=== PATIENT | female | born 1980 | race Caucasian/White ===

== ENCOUNTER 2016-11-28 12:42 | Emergency (ER) | payer OTHER ==
[2016-11-28 13:05] VITALS: BP 120/62; PULSE 94
[2016-11-28 13:15] VITALS: RESP 16; TEMP 98.2
[2016-11-28 13:48] LABS: BACTERIA, URINE MOD /hpf; BLOOD, URINE NEG (NEG); GLUCOSE,URINE NEG (NEG); KETONE, URINE 10 mg/dL (NEG); NITRITE,URINE NEG (NEG); PH, URINE 6.5 (5.0-8.5); SQUAMOUS EPITHELIAL CELL URINE 1 /hpf (0-5); URINE COLOR LIGHT-YELLOW (YELLW/STRAW)
[2016-11-28 13:50] LABS: COMMENT (UR) CULTURE INDICATED; CULTURE IF INDICATED CULTURE INDICATED
[2016-11-28 14:24] VITALS: BP 99/66; PULSE 80
[2016-11-28 14:29] VITALS: RESP 18
--- NOTE | 2016-11-28 14:29 | PD ---
HPI Chief Complaint pelvic pressure Date Seen: Nov 28, 2016 Time Seen: 13:00 Travel History International Travel<30 Days: No Contact w/Intl Traveler<30Days: No Known Affected Area: No History of Present Illness HPI 36 Yo at [id number] c/o pelvic pressure since last evening. Occasional contractions but mostly pressure complaints Para: 1 : 2 History Past Medical History Medical History: Denies Significant Hx Past Surgical History Surgical History: No Previous Surgery Family History Family History: Negative Social History Alcohol Use: No Tobacco Use: No Substance Abuse: No Allergies-Medications (Allergen,Severity, Reaction): Coded Allergies: No Known Allergies (Unverified , 11/28/16) Review of Systems Except as stated in HPI: all other systems reviewed are Neg Physical Exam Narrative GENERAL: Well-nourished, well-developed patient. SKIN: Warm and dry. HEAD: Normocephalic and atraumatic. EYES: No scleral icterus. No injection or drainage. ENT: No nasal drainage noted. Mucous membranes pink. Airway patent. NECK: Supple, trachea midline. No JVD. CARDIOVASCULAR: Regular rate and rhythm without murmurs, gallops, or rubs. RESPIRATORY: Breath sounds equal bilaterally. No accessory muscle use. BREASTS: Bilateral exam showed no masses , no retractions, no nipple discharge. ABDOMEN/GI: Abdomen soft, non-tender, bowel sounds present, no rebound, no guarding Gravid to [-] weeks size Fundal Height: [-]32 GENITOURINARY: External Genitalia: intact and normal in appearance BUS glands: [-]nl Cervix: [-]posterior Dilatation: [-] cl Effacement: [-] 0 Station: [-] high Presentation: [-] vtx Membranes: [intact or ruptured]int Uterine Contractions: [-] irregular q5-12min Significant stool in rectum FHT's: Category: [-] 1 Baseline: [-] 140 Reactive: [-] mod Variability: [-] mod, accels present Decels: [-] absent EXTREMITIES: No cyanosis or edema. BACK: Nontender without obvious deformity. No CVA tenderness. NEUROLOGICAL: Awake and alert. Motor and sensory grossly within normal limits. Five out of 5 muscle strength in all muscle groups. Normal speech. Data Data Vital Signs Reviewed: Yes Orders Vital Signs (Adult) .ON ADMISSION (11/28/16 13:31) ^ Labor Status (11/28/16 13:31) Urinalysis - C+S If Indicated (11/28/16 13:31) ^ Hydration (11/28/16 13:31) Fibronectin (11/28/16 13:31) Urine Culture (11/28/16 12:50) Labs Laboratory Tests Test 11/28/16 11/28/16 12:50 13:30 Urine Color LIGHT-YELLOW Urine Turbidity CLEAR Urine pH 6.5 Urine Specific Ewing 1.004 Urine Protein NEG mg/dL Urine Glucose (UA) NEG mg/dL Urine Ketones 10 mg/dL Urine Occult Blood NEG Urine Nitrite NEG Urine Bilirubin NEG Urine Urobilinogen LESS THAN 2.0 MG/DL Urine Leukocyte Esterase SMALL Urine RBC LESS THAN 1 /hpf Urine WBC 1 /hpf Urine Squamous Epithelial 1 /hpf Cells Urine Bacteria MOD /hpf Microscopic Urinalysis Comment CULTURE INDICATED Fibronectin NEGATIVE Laboratory Tests Test 11/28/16 11/28/16 12:50 13:30 Urine Color LIGHT-YELLOW Urine Turbidity CLEAR Urine pH 6.5 Urine Specific Ewing 1.004 Urine Protein NEG Urine Glucose (UA) NEG Urine Ketones 10 Urine Occult Blood NEG Urine Nitrite NEG Urine Bilirubin NEG Urine Urobilinogen LESS THAN 2.0 Urine Leukocyte Esterase SMALL Urine RBC LESS THAN 1 Urine WBC 1 Urine Squamous Epithelial 1 Cells Urine Bacteria MOD Microscopic Urinalysis Comment CULTURE INDICATED Fibronectin NEGATIVE Date/Time Procedure Status Source Growth 11/28/16 12:50 Urine Culture Received Urine Clean Catch Pending MDM Plan False labor at 33 weeks FFN negative Consider stool softener PTL warnings Diagnosis Diagnosis: Primary Impression: False labor before 37 completed weeks of gestation during in third trimester, antepartum Additional Impression: 33 weeks gestation of Disposition: 01 DISCHARGE HOME Kylie Melgar MD Nov 28, 2016 14:29
== END 2016-11-28 14:37 | disposition home or self-care (01) ==
LOC: HOBED 12:42
DX: O47.1 False labor at or after 37 completed weeks of gestation (principal); Z3A.37 37 weeks gestation of pregnancy
CPT/HCPCS: 59025; 81001; 82731; 87086

== ENCOUNTER 2016-12-10 19:10 | Emergency (ER) | payer OTHER ==
[2016-12-10 19:25] VITALS: BP 115/67; PULSE 86; RESP 16; TEMP 97.9
--- NOTE | 2016-12-10 19:41 | PD ---
HPI Travel History International Travel<30 Days: No Contact w/Intl Traveler<30Days: No Known Affected Area: No History of Present Illness HPI This patient is a 36-year-old 2 para 1 EDC is January 13, 2017 presently at 35 weeks and 1 day she presents the chief complaint of a headache unresponsive to Tylenol and she has some flashes in her eyes no ruptured membranes no vaginal bleeding has occasional Skip Guido the baby is active care with Dr. Campa History Past Medical History Narrative Medical No known drug allergies no history of any major medical problems Obstetric History Obstetric History First February 10, 2001 female infant weight 6 lbs. 14 oz. vaginal delivery uncomplicated Past Surgical History Surgical History: No Previous Surgery Family History Family History: Negative Social History Alcohol Use: No Tobacco Use: No Substance Abuse: No Allergies-Medications (Allergen,Severity, Reaction): Coded Allergies: No Known Allergies (Unverified , 11/28/16) Review of Systems Eyes: Blurred Vision HENT: Headaches Physical Exam Vital Signs Date Time Temp Pulse Resp B/P Pulse Ox O2 Delivery O2 Flow Rate FiO2 12/10/16 19:25 97.9 16 12/10/16 19:25 86 115/67 Narrative GENERAL: Well-nourished, well-developed patient. Alert oriented 3 and cooperative in no acute distress SKIN: Warm and dry. HEAD: Normocephalic and atraumatic. EYES: No scleral icterus. No injection or drainage. Conjunctiva pink ENT: No nasal drainage noted. Mucous membranes pink. Airway patent. Mucous membranes are moist CARDIOVASCULAR: Regular rate and rhythm without murmurs, gallops, or rubs. RESPIRATORY: Breath sounds equal bilaterally. No accessory muscle use. ABDOMEN/GI: Gravid consistent with 35 weeks soft nontender baby active no palpable contractions Gravid to [-] weeks size 35 Fundal Height: [-] GENITOURINARY: External Genitalia: intact and normal in appearance BUS glands: [-] Cervix: [-] Posterior soft Dilatation: [-] Closed Effacement: [-] 0 Station: [-] Ballotable Presentation: [-] Vertex Membranes: [intact Uterine Contractions: [-] Occasional [place] Guido FHT's: Category: [-] 1 Baseline: [-] 1:30 Reactive: [-] + Variability: [-] Moderate Decels: [-] 0 EXTREMITIES: No cyanosis 2+ edema reflexes are 2+ and non-brisk NEUROLOGICAL: Awake and alert. Motor and sensory grossly within normal limits. Five out of 5 muscle strength in all muscle groups. Normal speech. Data Data Vital Signs Reviewed: Yes (blood pressure 115/67 pulse 86 respiration 16 temperature is 97.9) Orders Vital Signs (Adult) LEVY.Q4H (12/10/16 19:12) ^ Labor Status (12/10/16 19:12) Urinalysis - C+S If Indicated (12/10/16 19:12) ^ Hydration (12/10/16:12) Cbc No Diff, Includes Plts (12/10/16 19:12) Comprehensive Metabolic Panel (12/10/16:12) Uric Acid (12/10/16:12) MDM Medical Record Reviewed: Yes (previous visit reviewed) Interpretation(s) 36-year-old at 35 weeks and 1 day Not in labor headache and visual changes Rule out preeclampsia versus headache/migraines Narrative Course / MDM Labs within normal limits No protein Blood pressure stable Category 1 trace Plan External monitoring By mouth fluid hydration Blood pressure every 15 minutes on left tilt CBC CMP uric acid urinalysis Reevaluation Patient to follow-up with Dr. Campa with her next appointment or as indicated Diagnosis Diagnosis: Primary Impression: Headache Additional Impression: 35 weeks gestation of Disposition: 01 DISCHARGE HOME Condition: Stable Tamia Gaffney MD Dec 10, 2016 19:41
[2016-12-10] MEDS ORDERED: ACETAMINOPHEN/CODEINE 300 MG/30 MG TAB PO ONE (19:45)
[2016-12-10 20:04] LABS: HEMATOCRIT 30.6 % (35.0-46.0); MEAN CELL VOLUME 84.1 FL (80.0-100.0); MEAN CORPUSCULAR HEMOGLOBIN 29.8 PG (27.0-34.0); MEAN CORPUSCULAR HGB CONC 35.4 % (32.0-36.0); PLATELET COUNT 265 TH/MM3 (150-450); RED BLOOD COUNT 3.64 MIL/MM3 (4.00-5.30); RED CELL DISTRIBUTION WIDTH 13.4 % (11.6-17.2); REVIEW FLAG FINAL; WHITE BLOOD COUNT 14.7 TH/MM3 (4.0-11.0)
[2016-12-10 20:10] LABS: BACTERIA, URINE RARE /hpf; BLOOD, URINE NEG (NEG); COMMENT (UR) CULT NOT INDICATED; CULTURE IF INDICATED CULT NOT INDICATED; GLUCOSE,URINE NEG (NEG); KETONE, URINE NEG (NEG); MUCUS URINE FEW /lpf (OCC); NITRITE,URINE NEG (NEG); PH, URINE 6.5 (5.0-8.5); URINE COLOR COLORLESS (YELLW/STRAW)
[2016-12-10 20:20] LABS: ALT (GPT) 15 U/L (10-53); ANION GAP 10 MEQ/L (5-15); AST (GOT) 10 U/L (15-37); BICARBONATE 24.7 MEQ/L (21.0-32.0); BLOOD UREA NITROGEN 5 MG/DL (7-18); CHLORIDE 102 MEQ/L (98-107); GLOMERULAR FILTRATION RATE 145 ML/MIN (>89); POTASSIUM 3.6 MEQ/L (3.5-5.1); SODIUM (NA) 137 MEQ/L (136-145); URIC ACID 2.5 MG/DL (2.6-6.0)
[2016-12-10 20:22] LABS: ALKALINE PHOSPHATASE 112 U/L (45-117); TOTAL BILIRUBIN ADULT 0.3 MG/DL (0.2-1.0)
[2016-12-10 20:25] VITALS: RESP 16
[2016-12-10 20:26] VITALS: BP 108/64; PULSE 68
== END 2016-12-10 21:03 | disposition home or self-care (01) ==
LOC: HOBED 19:10
DX: O26.893 Other specified pregnancy related conditions, third trimester (principal); R51 Headache; Z3A.35 35 weeks gestation of pregnancy
CPT/HCPCS: 36415; 59025; 80053; 81001; 84550; 85027

== ENCOUNTER 2016-12-11 22:18 | Emergency (ER) | payer OTHER ==
--- NOTE | 2016-12-11 23:01 | PD ---
HPI Chief Complaint Irregular contractions, decreased movement"abdomen getting very hard and staying hard" Date Seen: Dec 11, 2016 Travel History International Travel<30 Days: No Contact w/Intl Traveler<30Days: No Known Affected Area: No History of Present Illness HPI Patient is a 36-year-old white female 35 weeks presents complaining of her abdomen getting hard this evening staying hard. It was not really hurting is just her abdomen again very firm and was sustained that way and that worried her. She had noticed some mild decrease in movement prior to that but the baby then began move more when she started to do kick counts at home she then began noticing what she describes Skip Guido contractions. She denies bleeding or rupture the membranes Para: 1 : 2 History Obstetric History Obstetric History One vaginal delivery Social History Alcohol Use: No Tobacco Use: No Substance Abuse: No Allergies-Medications (Allergen,Severity, Reaction): Coded Allergies: No Known Allergies (Unverified , 11/28/16) Review of Systems General / Constitutional: No: Fever, Weight Gain, Chills, Other Eyes: No: Diploplia, Blurred Vision, Visual changes, Pain, Photophobia HENT: No: Headaches, Vertigo, Lightheadedness Cardiovascular: No: Irregular Rhythm, Chest Pain or Discomfort, Palpitations, Tachycardia, Syncope, Varicosities, Edema, Cyanosis Respiratory: No: Cough, Short of Breath, Other Gastrointestinal: No: Nausea, Vomiting, Diarrhea Genitourinary: No: Decreased Urinary Output, Oliguria Musculoskeletal: No: Limited ROM, Weakness, Cramping, Edema, Pain Skin: No Rash, No Itching, No Dryness, No Lumps, No Change in Pigmentation, No Change in Nails, No Alopecia, No Lesions Neurologic: No: Weakness, Dizziness, Syncope, Focal Abnormalities, Coordination Problem, Headache, Slurred Speech, Seizures Psychiatric: No: Depression, Suicidal Ideations, Homicidal Ideation Endocrine: No: Heat Intolerance, Cold Intolerance, Polydipsia, Polyuria, Other Physical Exam Narrative GENERAL: Well-nourished, well-developed patient. SKIN: Warm and dry. HEAD: Normocephalic and atraumatic. EYES: No scleral icterus. No injection or drainage. ENT: No nasal drainage noted. Mucous membranes pink. Airway patent. NECK: Supple, trachea midline. No JVD. CARDIOVASCULAR: Regular rate and rhythm without murmurs, gallops, or rubs. RESPIRATORY: Breath sounds equal bilaterally. No accessory muscle use. BREASTS: Bilateral exam showed no masses , no retractions, no nipple discharge. ABDOMEN/GI: Abdomen soft, non-tender, bowel sounds present, no rebound, no guarding Gravid to [36-] weeks size Fundal Height: [36-] GENITOURINARY: External Genitalia: intact and normal in appearance BUS glands: [-] Cervix: [-1] Dilatation: [1-] Effacement: [-30] Station: [-3] Presentation: [vtx-] Membranes: [intact ] Uterine Contractions: [irreg-] FHT's: Category: [1-] Baseline: [-133] Reactive: [-yes] Variability: [mod-] Decels: [none-] EXTREMITIES: No cyanosis or edema. BACK: Nontender without obvious deformity. No CVA tenderness. NEUROLOGICAL: Awake and alert. Motor and sensory grossly within normal limits. Five out of 5 muscle strength in all muscle groups. Normal speech. MDM Interpretation(s) This patient is 36-year-old white female at [address] Campa who presents complaining of her abdomen getting hard earlier in the day of with some prior to that decreased movement , she denies bleeding or rupture the membranes and the baby became more active once she started doing kick counts at home she then began having what she describes as Skip Guido contractions. Here on OB ED patient is having irregular contractions that she is barely feeling, her cervix is 1/ thick and high,, heart rate tracing is reactive Plan Plan for patient is to be discharged home to bedrest to drink plenty of fluids stay hydrated use Tylenol liberally uncomfortable and use a heating pad or hot bath to help relieve her symptoms. She is to watch with baby is doing kick count whys and to return if there is a problem otherwise she'll follow-up with her OB provider Diagnosis Diagnosis: Primary Impression: [place] Guido contractions Additional Impression: Decreased movement affecting management of in third trimester Disposition: 01 DISCHARGE HOME Condition: Stable Martin Neal II, MD Dec 11, 2016 23:01
== END 2016-12-11 23:22 | disposition home or self-care (01) ==
LOC: HOBED 22:18
DX: O47.03 False labor before 37 completed weeks of gestation, third trimester (principal); Z3A.35 35 weeks gestation of pregnancy
CPT/HCPCS: 99284

== ENCOUNTER → 2016-12-16 | Outpatient (CLI) | payer OTHER ==
[~2016-12-16] MED LIST: PREN29TA PO
== END ==
LOC: HPND 14:15
PROVIDERS: ATTEND Obstetrics & Gynecology
DX: O36.63X0 Maternal care for excessive fetal growth, third trimester, not applicable or unspecified (principal)
CPT/HCPCS: 76816

== ENCOUNTER 2017-01-13 06:09 | Inpatient (IN) | payer OTHER ==
[~2017-01-13] VITALS: Ht 165.1 cm; Wt 77.1 kg
[2017-01-13] VITALS (39 sets, daily range): BP systolic 93–126; BP diastolic 52–75; PULSE 65–120; RESP 16–20; TEMP 98–98.7; O2SAT 99–100
[2017-01-13] MEDS ORDERED: NS 1000 ML IV PRN (06:30)
[2017-01-13] MEDS ORDERED: NS 500 ML BOLUS IV PRN (06:30)
[2017-01-13] MEDS ORDERED: LIDOCAINE HCL 1% 50 ML VIAL I-DERMAL PRN (06:30)
[2017-01-13] MEDS ORDERED: CITRIC ACID-SODIUM CITRATE LIQ 30 ML UDC PO SCH (06:30)
[2017-01-13] MEDS ORDERED: LACTATED RINGER'S 1000 ML BOLUS IV PRN (06:30)
[2017-01-13] MEDS ORDERED: OXYTOCIN 30 UNITS 500ML PREMIX IV ONE (06:30)
[2017-01-13] MEDS ORDERED: OXYTOCIN 30 UNITS/NS 500ML PREMIX IV SCH (06:30)
[2017-01-13] MEDS ORDERED: ONDANSETRON HCL 4 MG/2 ML VIAL IV PRN (06:30)
[2017-01-13] MEDS ORDERED: MINERAL OIL 10 ML VIAL TOPICAL PRN (06:30)
[2017-01-13] MEDS ORDERED: LIDOCAINE HCL 1% 50 ML VIAL INFIL PRN (06:30)
[2017-01-13] MEDS ORDERED: PREN29TA PO (06:40)
[2017-01-13 06:53] LABS: BASOPHIL % 0.1 % (0.0-2.0); EOSINOPHIL # 0.2 TH/MM3 (0-0.4); EOSINOPHIL % 1.5 % (0.0-4.0); HEMO FLAGS DIFF FINAL; LYMPH % 11.4 % (9.0-44.0); LYMPHOCYTE # 1.5 TH/MM3 (1.0-4.8); MEAN CELL VOLUME 84.3 FL (80.0-100.0); MEAN CORPUSCULAR HEMOGLOBIN 29.1 PG (27.0-34.0); MEAN CORPUSCULAR HGB CONC 34.5 % (32.0-36.0); MONO % 4.7 % (0.0-8.0); NEUT % 82.3 % (16.0-70.0); PLATELET COUNT 237 TH/MM3 (150-450); RED CELL DISTRIBUTION WIDTH 14.7 % (11.6-17.2); WHITE BLOOD COUNT 13.4 TH/MM3 (4.0-11.0)
[2017-01-13 07:08] LABS: BLOOD, URINE NEG (NEG); GLUCOSE,URINE NEG (NEG); KETONE, URINE NEG (NEG); NITRITE,URINE NEG (NEG); URINE COLOR LIGHT-YELLOW (YELLW/STRAW)
[2017-01-13 07:15] LABS: COMMENT (UR) CULT NOT INDICATED; CULTURE IF INDICATED CULT NOT INDICATED
[2017-01-13] MEDS: LACTATED RINGER'S 1000 ML IV SCH ×2 (08:16→14:30)
--- NOTE | 2017-01-13 08:22 | MH ---
cc: JUDIT MENDOZA DATE OF ADMISSION 01/13/2017 HISTORY Ms. Hernandez is a 36-year-old white female para 1-0-0-1 who is at 40 weeks and zero days. She came to the office yesterday was 3-4 cm dilated and desired induction. She is here for induction of labor and expect a vaginal delivery. PAST OBSTETRICAL HISTORY Para 1-0-0-1. She had an without any difficulty. 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 PAST MEDICAL HISTORY Remarkable for anemia. PAST SURGICAL HISTORY Negative SOCIAL HISTORY She is . She does not smoke, drink or take drugs. FAMILY HISTORY Remarkable for high blood pressure, high cholesterol, heart disease and breast cancer. ALLERGIES No known drug allergies. CURRENT MEDICATIONS vitamins one p.o. q. day REVIEW OF SYSTEMS No headaches, no shortness of breath. No chest pain. Good movement. No rupture of membranes, bleeding. No regular uterine contractions. PHYSICAL EXAM Her physical exam reveals a well-developed, well-nourished female in no acute distress. VITAL SIGNS: Her temperature is 98.1, pulse is 78, respirations 18, blood pressure 118/65. HEENT: Normocephalic, atraumatic. NECK: Supple. The trachea is in the midline. CHEST: The chest is clear to auscultation. HEART: The heart has a regular rate and rhythm. ABDOMEN: Gravid and nontender. The fundus is nontender. The baby appears to be about 7/15. The cervix is 3-4, 30% effaced, vertex -3, rupture of membranes reveals clear fluid. EXTREMITIES: There is no clubbing, cyanosis or edema. LABORATORY DATA Her laboratory workup is pending. ASSESSMENT/PLAN 1. Intrauterine at 40 weeks, zero days. 2. For induction of labor 3. Negative GBS R. MD JESSICA Cook/PRETTY /7:54 AM /8:16 AM
[2017-01-13] MEDS ORDERED: fentaNYL 2MCG-BUPIV 0.125% INJ 100 ML ONE (15:43)
[2017-01-13] MEDS ORDERED: ePHEDrine/NS 25 MG/5 ML SYR ONE (15:43)
[2017-01-13] MEDS ORDERED: MEASLES, MUMPS, RUBELLA VACCINE 0.5 ML VIAL SQ ONE (16:00)
[2017-01-13] MEDS ORDERED: DIPHTH/TETANUS/ACEL PERTUSSIS (BOOSTER) 0.5 ML VIAL/PFS IM ONE (16:00)
--- NOTE | 2017-01-13 22:53 | PD.OB.DELI ---
Delivery Date: Jan 13, 2017 Anesthesia: Epidural Episiotomy: None Vaginal Delivery: Normal Presentation: Occiput anterior Nuchal Cord: None Delayed cord clamping (45 sec): Yes Shoulder Dystocia: Suprapubic pressure given, Jorge maneuver done : Male One Minute : 8 Five Minute : 9 Weight: 10 pounds. Infant Care: Suctioned, Spontaneous crying, Responded to stimulation Placenta: Spontaneous delivery, Intact, Uterus explored +, 3 vessel cord Laceration: Perineal laceration, 1 deg Repair: Vicryl running Additional Information Nice delivery of Ronny. Mild shoulder dystocia resolved with [facility] and suprapubic pressure. Good alin reflex. EBL was 350cc Noted to be warm inside and nursery informed Stanislaw Campa MD Jan 13, 2017 22:52
[2017-01-13] MEDS ORDERED: OXYTOCIN 30 UNITS-500ML PREMIX 500 ML IV ONE (23:00)
[2017-01-13] MEDS ORDERED: ACETAMINOPHEN 325 MG TAB PO PRN (23:00)
[2017-01-13] MEDS ORDERED: ONDANSETRON ODT 4 MG TAB PO PRN (23:00)
[2017-01-13] MEDS ORDERED: BENZOCAINE 20% TOPICAL SPRAY 60 ML CAN TOPICAL PRN (23:00)
[2017-01-13] MEDS ORDERED: WITCH HAZEL 50%/GLYCERIN 12.5% 40 PAD JAR TOPICAL PRN (23:00)
[2017-01-13] MEDS ORDERED: oxyCODONE/ACETAMINOPHEN 5 MG/325 MG TAB PO PRN ×2 (23:00)
[2017-01-13] MEDS ORDERED: ZOLPIDEM TARTRATE 5 MG TAB PO PRN (23:00)
[2017-01-13] MEDS ORDERED: DOCUSATE SODIUM 50 MG/SENNA 8.6 MG TAB PO PRN (23:00)
[2017-01-13] MEDS ORDERED: SODIUM CHLORIDE 0.9% FLUSH 10 ML FLUSH IV FLUSH PRN (23:00)
[2017-01-13] MEDS ORDERED: ALUMINUM/MAGNESIUM/SIMETH 30 ML CUP PO PRN (23:00)
[2017-01-14] VITALS: RESP 16
[2017-01-14 02:48] VITALS: TEMP 99.1
[2017-01-14 02:49] VITALS: BP 107/58; PULSE 80; RESP 15
[2017-01-14] MEDS: MULTIVIT/MIN/PREN/FOL AC/IRON PRENATAL TAB PO SCH (07:36)
[2017-01-14] MEDS: IBUPROFEN 600 MG TAB PO PRN ×2 (07:37→15:42)
[2017-01-14 08:32] VITALS: BP 110/57; PULSE 75; RESP 16; TEMP 97.6
[2017-01-14] MEDS ORDERED: SODIUM CHLORIDE 0.9% FLUSH 10 ML FLUSH IV FLUSH SCH (09:00)
--- NOTE | 2017-01-14 11:51 | HHI.OB ---
Subjective Post Day: 1 Objective Vitals/I&O Vital Signs Date Time Temp Pulse Resp B/P Pulse Ox O2 Delivery O2 Flow Rate FiO2 01/14/17 09:34 16 01/14/17 08:32 97.6 75 16 01/14/17 08:32 110/57 01/14/17 02:49 15 01/14/17 02:49 80 107/58 01/14/17 02:48 99.1 01/14/17 00:00 16 01/13/17 23:40 89 100/57 01/13/17 23:30 16 01/13/17 23:03 120 115/67 01/13/17 23:00 18 01/13/17 22:37 98.7 01/13/17 20:34 111/70 01/13/17 20:01 107 126/61 01/13/17 19:01 78 104/58 01/13/17 18:50 79 93/75 01/13/17 18:01 76 113/69 01/13/17 17:57 98.2 01/13/17 17:45 73 120/67 01/13/17 17:43 18 01/13/17 17:31 73 111/67 01/13/17 17:15 67 117/63 01/13/17 16:51 20 01/13/17 16:50 73 01/13/17 16:46 69 107/52 01/13/17 16:45 82 01/13/17 16:34 20 01/13/17 16:31 70 113/54 01/13/17 16:30 68 01/13/17 16:20 74 100 01/13/17 16:15 85 100 01/13/17 16:10 74 01/13/17 16:10 100 01/13/17 16:05 100 01/13/17 16:05 79 01/13/17 16:00 80 99 01/13/17 15:55 75 100 01/13/17 13:44 68 125/61 01/13/17 13:28 18 01/13/17 13:25 71 121/55 01/13/17 12:56 98.0 01/13/17 12:33 73 111/54 01/13/17 12:32 18 Objective Remarks GENERAL: Well-nourished, well-developed patient. CARDIOVASCULAR: Regular rate and rhythm without murmurs, gallops, or rubs. RESPIRATORY: Breath sounds equal bilaterally. No accessory muscle use. ABDOMEN/GI: Abdomen soft, non-tender. Fundus: Firm, non-tender at umbilicus. GENITOURINARY: Light to moderate bleeding. EXTREMITIES: No cyanosis or edema, non-tender, without signs of DVT. Medications and IVs Current Medications Medications (Trade) Dose Ordered Sig/Chris Route Start Time Stop Time Status Last Admin (NS Flush) 2 ml BID IV FLUSH 01/14/17 09:00 (NS Flush) 2 ml UNSCH PRN IV FLUSH 01/13/17 23:00 (Tylenol) 650 mg Q4H PRN PO 01/13/17 23:00 (Motrin) 600 mg Q6H PRN PO 01/13/17 23:00 01/14/17 07:37 (Percocet 5-325 Mg) 1 tab Q4H PRN PO 01/13/17 23:00 (Percocet 5-325 Mg) 2 tab Q4H PRN PO 01/13/17 23:00 (Americaine 20% Top Spr) 1 spray Q4H PRN TOPICAL 01/13/17 23:00 (Tucks Pads) 1 applic QID PRN TOPICAL 01/13/17 23:00 (Esperanza-Colace) 2 tab Q12H PRN PO 01/13/17 23:00 (Ambien) 5 mg HS PRN PO 01/13/17 23:00 (Mag-Al Plus Susp Liq) 15 ml Q8H PRN PO 01/13/17 23:00 (Zofran Odt) 4 mg Q6H PRN PO 01/13/17 23:00 (Stuartnatal Plus 3 ) 1 tab DAILY PO 01/14/17 09:00 01/14/17 07:36 Assessment/Plan Problem List: (1) Normal vaginal delivery Plan: ROUTINE Assessment and Plan PT DOING WELL TAKING MOTRIN FOR PAIN AND DOING WELL IN ROOM DOING WELL, MOM ROUTINE Discharge Planning CONSIDER RADHAMES TOMORROW Kandi Moya Jan 14, 2017 11:51
--- NOTE | 2017-01-14 11:53 | HHI.DCPOC ---
Discharge Care Plan Diagnosis: (1) Normal vaginal delivery Report Symptoms to Your Doctor -Temperate above 100.5 degrees -Redness, of incision or excessive or foul smelling drainage -Unusual pain or calf pain -Increased vaginal bleeding -Painful or difficulty urinating -Feelings of extreme sadness or anxiety after 2 weeks Goals to Promote Your Health * To prevent worsening of your condition and complications * To maintain your health at the optimal level Directions to Meet Your Goals Take your medications as prescribed Follow your dietary instruction Follow activity as directed Ensure plenty of rest for recovery Drink fluids for hydration Keep your appointments as scheduled Take your immunizations and boosters as scheduled If your symptoms worsen call your PCP, if no PCP go to Urgent Care Center or Emergency Room Smoking is Dangerous to Your Health. Avoid second hand smoke Call the 24-hour crisis hotline for domestic abuse at Kandi Moya Jan 14, 2017 11:53
--- NOTE | 2017-01-14 11:59 | HHI.DS ---
Admission Date Jan 13, 2017 at 06:09 Discharge Date: Jan 15, 2017 Admitting Diagnosis 39 WEEK IUP INDUCTION OF LABOR Diagnosis: (1) Normal vaginal delivery Diagnosis: Principal Delivery Date: Jan 13, 2017 Vaginal Delivery: Normal Infant: Male Brief History 39 WEEK IUP INDUCTION OF LABOR Hospital Course INDUCTION OF LABOR WITH MILD SHOULDER DYSTOCIA ROUTINE CARE Pt Condition on Discharge: Good Discharge Disposition: Discharge Home Discharge Instructions Diet Instructions: As Tolerated, No Restrictions Additional Diet Instructions: Drink at least 8 - 16 oz bottles of water a day Activities You Can Perform: Shower Only-No Bath, Sitz Bath Activities to Avoid: Lifting/Bending, Sexual Activity Additional Activity Instruc.: No driving until off pain medications Do not lift anything heavier than your baby in an infant carrier 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
[2017-01-14 18:05] VITALS: RESP 16
[2017-01-15] MEDS: IBUPROFEN 600 MG TAB PO PRN ×2 (00:46→09:22)
--- NOTE | 2017-01-15 08:24 | HHI.OB ---
Subjective Post Day: 2 Remarks Doing well, Baby is good Bleeding is normal Ready to go home Objective Vitals/I&O Vital Signs Date Time Temp Pulse Resp B/P Pulse Ox O2 Delivery O2 Flow Rate FiO2 01/14/17 18:05 16 01/14/17 08:32 97.6 75 16 01/14/17 08:32 110/57 Objective Remarks GENERAL: Well-nourished, well-developed patient. CARDIOVASCULAR: Regular rate and rhythm without murmurs, gallops, or rubs. RESPIRATORY: Breath sounds equal bilaterally. No accessory muscle use. ABDOMEN/GI: Abdomen soft, non-tender. Fundus: Firm, non-tender at umbilicus. GENITOURINARY: Light to moderate bleeding. EXTREMITIES: No cyanosis or edema, non-tender, without signs of DVT. Medications and IVs Current Medications Medications (Trade) Dose Ordered Sig/Chris Route Start Time Stop Time Status Last Admin (NS Flush) 2 ml BID IV FLUSH 01/14/17 09:00 (NS Flush) 2 ml UNSCH PRN IV FLUSH 01/13/17 23:00 (Tylenol) 650 mg Q4H PRN PO 01/13/17 23:00 (Motrin) 600 mg Q6H PRN PO 01/13/17 23:00 01/15/17 00:46 (Percocet 5-325 Mg) 1 tab Q4H PRN PO 01/13/17 23:00 (Percocet 5-325 Mg) 2 tab Q4H PRN PO 01/13/17 23:00 (Americaine 20% Top Spr) 1 spray Q4H PRN TOPICAL 01/13/17 23:00 (Tucks Pads) 1 applic QID PRN TOPICAL 01/13/17 23:00 (Esperanza-Colace) 2 tab Q12H PRN PO 01/13/17 23:00 (Ambien) 5 mg HS PRN PO 01/13/17 23:00 (Mag-Al Plus Susp Liq) 15 ml Q8H PRN PO 01/13/17 23:00 (Zofran Odt) 4 mg Q6H PRN PO 01/13/17 23:00 (Stuartnatal Plus 3 ) 1 tab DAILY PO 01/14/17 09:00 01/14/17 07:36 Assessment/Plan Problem List: (1) Normal vaginal delivery Plan: ROUTINE Assessment and Plan PPD #2 Routine FDC today Discharge Planning d/c home Stanislaw Campa MD Jan 15, 2017 08:24
[2017-01-15] MEDS: MULTIVIT/MIN/PREN/FOL AC/IRON PRENATAL TAB PO SCH (09:00)
== END 2017-01-15 10:51 | disposition home or self-care (01) | DRG 775 ==
LOC: H2EB 06:09 → H1EA 01-14 00:46
PROVIDERS: ADMIT Obstetrics & Gynecology; ATTEND Obstetrics & Gynecology
PROC: 10E0XZZ Delivery of Products of Conception, External Approach (ICD-10-PCS; principal; 2017-01-13)
PROC: 0HQ9XZZ Repair Perineum Skin, External Approach (ICD-10-PCS; 2017-01-13)
PROC: 10907ZC Drainage of Amniotic Fluid, Therapeutic from Products of Conception, Via Natural or Artificial Opening (ICD-10-PCS; 2017-01-13)
PROC: 3E0S3CZ (ICD-10-PCS; 2017-01-13)
PROC: 00HU33Z Insertion of Infusion Device into Spinal Canal, Percutaneous Approach (ICD-10-PCS; 2017-01-13)
DX: O75.89 Other specified complications of labor and delivery (principal); O66.0 Obstructed labor due to shoulder dystocia; O70.0 First degree perineal laceration during delivery; Z37.0 Single live birth; Z3A.40 40 weeks gestation of pregnancy
CPT/HCPCS: 59025; 81001; 85025; 86900; 86901; 90715; J2590; J7120